=== PATIENT | male | born 2000 | race Hispanic/Latino ===

== ENCOUNTER 2021-12-14 09:54 | Emergency (ER) | payer OTHER, SELFPAY ==
[2021-12-14 10:53] VITALS: BP 128/84; PULSE 65; RESP 14; TEMP 36.9; O2SAT 100; BMI 25.8
--- NOTE | 2021-12-14 10:55 | DI.RAD.S_ITS ---
PROCEDURE: XR CHEST 1V INDICATIONS: chest pain TECHNIQUE: One view of the chest was acquired. COMPARISON: None. FINDINGS: Surgical changes and devices: None. Lungs and pleura: Lungs are clear. No pleural effusions or pneumothorax. Mediastinum: Mediastinal contours appear normal. Heart size is normal. Bones and chest wall: No suspicious bony lesions. Overlying soft tissues appear unremarkable. IMPRESSION: No acute cardiopulmonary pathology. Dictated by: Butch Darling M.D. on 12/14/2021 at 11:31 Approved by: Butch Darling M.D. on 12/14/2021 at 11:37
[2021-12-14 11:47] LABS: Add Manual Diff / Slide Review NO; Basophils Absolute Auto 0 /uL (0-100); Basophils Percent Auto 0.8 % (0-2); Eosinophils Absolute Auto 0 /uL (0-450); Eosinophils Percent Auto 0.9 % (2-4); Hematocrit 51.7 % (41-53); Hemoglobin 17.8 g/dL (13.5-17.5); Lymphocytes Absolute Auto 1600 /uL (1100-4500); Lymphocytes Percent Auto 28.9 % (25-40); Mean Corpuscular HGB Conc 34.4 % (30-36); Mean Corpuscular Hemoglobin 30.5 PG (26-34); Mean Corpuscular Volume 88.7 fL (80-100); Monocytes Absolute Auto 200 /uL (0-900); Monocytes Percent Auto 3.8 % (3-14); Neutrophils Absolute Auto 3700 /uL (1500-7000); Neutrophils Percent Auto 65.6 % (50-75); Platelet Count 298 X10^3/uL (150-400); Red Blood Cell Count 5.83 X10^6/uL (4.5-5.9); Red Cell Distribution Width 12.5 % (11.6-14.8); White Blood Cell Count 5.6 X10^3/uL (4.5-11.0)
[2021-12-14 11:58] LABS: Alanine Aminotransferase 23 IU/L (<50); Albumin 5.2 g/dL (3.5-5.0); Albumin Globulin Ratio 1.6 (1.0-2.8); Alkaline Phosphatase 66 U/L (38-126); Aspartate Aminotransferase 28 IU/L (17-59); BUN Creatinine Ratio 12.5 (6-22); Bilirubin Total 0.6 mg/dL (0.2-1.3); Blood Urea Nitrogen 14 mg/dL (9-20); Calcium 9.9 mg/dL (8.4-10.2); Carbon Dioxide 27 mmol/L (22-32); Chloride 102 mmol/L (98-107); Creatine Kinase 134 U/L (55-170); Estimated Glomerular Filt Rate > 60 mL/min (>60); Globulin 3.3 g/dL (1.7-4.1); Glucose 77 mg/dL (70-100); HEMOLYSIS 16 (0-50); Lipase 116 U/L (23-300); Magnesium 2.1 mg/dL (1.6-2.3); Potassium 4.1 mmol/L (3.4-5.1); Sodium 141 mmol/L (137-145); Total Protein 8.5 g/dL (6.3-8.2)
[2021-12-14 12:09] LABS: Troponin I < 0.012 ng/mL (0.01-0.034)
[2021-12-14 12:14] LABS: CKMB % Relative Index 0.9 % (1.5-5.0); Creatine Kinase MB 1.23 ng/mL (<2.37)
--- NOTE | 2021-12-14 12:45 | PC.NURSE ---
pt ambulatory to room 3A. YOLETTE Cristobal at bedside. Pt with IV and labs sent. EKG and CXR done in triage.
[2021-12-14 13:05] VITALS: BP 138/70; PULSE 70; O2SAT 97
--- NOTE | 2021-12-14 15:16 | ED_ITS ---
HPI - Chest Pain <HAYLIE Fields - Last Filed: 12/14/21 15:25> General Chief Complaint: Chest Pain Stated Complaint: Chest pains on Right side Time Seen by Provider: 12/14/21 12:41 Source: patient Mode of arrival: Ambulatory Limitations: no limitations History of Present Illness HPI narrative: This is a 21-year-old male presents to the emergency department from the [employer] complaining of right-sided chest pain, denies any tenderness to palpation but states that he has pain with deep inspiration. States that he works out frequently and might have a muscle strain. He denies any shortness of breath, fever, chills, sore throat, congestion, other symptoms. He denies any weakness, numbness or tingling, palpitations, or nausea or vomiting. Related Data Allergies Allergy/AdvReac Type Severity Reaction Status Date / Time No Known Drug Allergies Allergy Verified 12/14/21 10:53 Review of Systems <HAYLIE Fields - Last Filed: 12/14/21 15:25> Review of Systems Narrative: Review of systems is negative for acute abnormalities unless otherwise noted in HPI Patient History <HAYLIE Fields - Last Filed: 12/14/21 15:25> Social History Smoking Status: Unknown if ever smoked Smoking Status: Unknown if ever smoked alcohol intake frequency: 0-2 drinks per day Substance Use Type: does not use Exam <HAYLIE Fields - Last Filed: 12/14/21 15:25> Narrative Exam Narrative: Reviewed vitals signs and nursing notes. General: cooperative, comfortable, in no acute distress, well groomed HEENT: symmetrical facial expressions, moist mucous membranes Cardiovascular: regular rate and rhythm, no peripheral edema, warm extremities, S1-S2 without murmur, Respiratory: normal effort, able to speak in complete sentences, without wheezing, stridor, or abnormal breath sounds. No retractions or tachypnea. GI: abdomen soft, nontender to palpation, nondistended, without masses, rebound tenderness or exquisite tenderness with exam. MSK: moves all extremities, neurovascularly intact, no weakness, normal tone, no tenderness about patient of the right chest or intercostal rib space Skin: brisk capillary refill, without pallor or erythema Neuro: normal speech and cognition, A&O x3, ambulatory, clear speech Psych: mental status is grossly normal, congruent mood, normal affect, pleasant and cooperative Initial Vital Signs Initial Vital Signs: Vital Signs Temperature 98.4 F 12/14/21 10:53 Pulse Rate 65 12/14/21 10:53 Respiratory Rate 14 12/14/21 10:53 Blood Pressure 128/84 12/14/21 10:53 Pulse Oximetry 100 12/14/21 10:53 Oxygen Delivery Method 12/14/21 10:53 <Christian Razo DO - Last Filed: 12/15/21 07:14> Initial Vital Signs Initial Vital Signs: Vital Signs Temperature 98.4 F 12/14/21 10:53 Pulse Rate 65 12/14/21 10:53 Respiratory Rate 14 12/14/21 10:53 Blood Pressure 128/84 12/14/21 10:53 Pulse Oximetry 100 12/14/21 10:53 Oxygen Delivery Method 12/14/21 10:53 Course <GRACIE FieldsP - Last Filed: 12/14/21 15:25> Orders Ordered: ED Orders 12/14/21 10:55 XR chest 1V Stat 12/14/21 11:03 EKG-12 Lead Routine 12/14/21 11:22 Complete Blood Count AUTO DIFF Stat Comprehensive Metabolic Panel Stat Lipase Stat Magnesium Stat Troponin & CK Cardiac Panel Stat Vital Signs Vital signs: Vital Signs - 8 hr 12/14/21 10:53 12/14/21 13:05 Temperature 98.4 F Pulse Rate 65 70 Respiratory Rate 14 Blood Pressure 128/84 138/70 Pulse Oximetry 100 97 Oxygen Delivery Method Room Air Room Air <Christian Razo DO - Last Filed: 12/15/21 07:14> Orders Ordered: ED Orders 12/14/21 10:55 XR chest 1V Stat 12/14/21 11:03 EKG-12 Lead Routine 12/14/21 11:22 Complete Blood Count AUTO DIFF Stat Comprehensive Metabolic Panel Stat Lipase Stat Magnesium Stat Troponin & CK Cardiac Panel Stat Vital Signs Vital signs: Vital Signs - 8 hr 12/14/21 10:53 12/14/21 13:05 Temperature 98.4 F Pulse Rate 65 70 Respiratory Rate 14 Blood Pressure 128/84 138/70 Pulse Oximetry 100 97 Oxygen Delivery Method Room Air Room Air MDM - Chest Pain <Mistyjose Cardonabenjamin, [facility] - Last Filed: 12/14/21 15:25> Lab Data Result diagrams: 12/14/21 11:12/14/21 11:22 Labs: Lab Results 12/14/21 12/14/21 Range/Units 11: 11: WBC 5.6 (4.5-11.0) X10^3/uL RBC 5.83 (4.5-5.9) X10^6/uL Hgb 17.8 H (13.5-17.5) g/dL Hct 51.7 (41-53) % MCV 88.7 (80-100) fL MCH 30.5 (26-34) PG MCHC 34.4 (30-36) % RDW 12.5 (11.6-14.8) % Plt Count 298 (150-400) X10^3/uL Neut % (Auto) 65.6 (50-75) % Lymph % (Auto) 28.9 (25-40) % [place] % (Auto) 3.8 (3-14) % Eos % (Auto) 0.9 L (2-4) % Baso % (Auto) 0.8 (0-2) % Neut # (Auto) 3700 (1332-8512) /uL Lymph # (Auto) 1600 (3782-5069) /uL [place] # (Auto) 200 (0-900) /uL Eos # (Auto) 0 (0-450) /uL Baso # (Auto) 0 (0-100) /uL Sodium 141 (137-145) mmol/L Potassium 4.1 (3.4-5.1) mmol/L Chloride 102 (98-107) mmol/L Carbon Dioxide 27 (22-32) mmol/L BUN 14 (9-20) mg/dL Creatinine 1.12 (0.66-1.25) mg/dL Estimated GFR > 60 (>60) mL/min BUN/Creatinine Ratio 12.5 (6-22) Glucose 77 (70-100) mg/dL Calcium 9.9 (8.4-10.2) mg/dL Magnesium 2.1 (1.6-2.3) mg/dL Total Bilirubin 0.6 (0.2-1.3) mg/dL AST 28 (17-59) IU/L ALT 23 (<50) IU/L Alkaline Phosphatase 66 (38-126) U/L Total Creatine Kinase 134 (55-170) U/L CK-MB (CK-2) 1.23 (<2.37) ng/mL CK-MB (CK-2) Rel Index 0.9 L (1.5-5.0) % Troponin I < 0.012 (0.01-0.034) ng/mL Total Protein 8.5 H (6.3-8.2) g/dL Albumin 5.2 H (3.5-5.0) g/dL Globulin 3.3 (1.7-4.1) g/dL Albumin/Globulin Ratio 1.6 (1.0-2.8) Lipase 116 (23-300) U/L Imaging Data Chest x-ray: Radiologist's Impression: PROCEDURE:? XR CHEST 1V ? INDICATIONS:? chest pain ? TECHNIQUE:? One view of the chest was acquired.? ? COMPARISON:? None. ? FINDINGS:? ? Surgical changes and devices:? None.? ? Lungs and pleura:? Lungs are clear.? No pleural effusions or pneumothorax.? ? Mediastinum:? Mediastinal contours appear normal.? Heart size is normal.? ? Bones and chest wall:? No suspicious bony lesions.? Overlying soft tissues appear unremarkable.? ? IMPRESSION:? No acute cardiopulmonary pathology. ? ? Dictated by: Butch Darling M.D. on 12/14/2021 at 11:31 ? ? Approved by: Butch Darling M.D. on 12/14/2021 at 11:37 ? ECG Data Interpretation: EKG independently reviewed by myself at 1115 reveals normal sinus rhythm at 84 bpm with regular axis and intervals. No STEMI, ST segment changes, arrhythmia, or acute ischemic changes. MDM Narrative Medical decision making narrative: 21-year-old male with history of right-sided chest pain without upper respiratory infection with deep inspiration. States it has been there for 2 weeks, endorses frequent workouts certain movements stretching. This costochondritis, his chest x-ray and laboratory workup was unremarkable for abnormalities. Breath sounds are clear throughout, patient is without any si gnificant findings, EKG is normal sinus rhythm without any ST changes. Recommend hydration, his hemoglobin is mildly elevated at 17.8. Suspect dehydration versus polycythemia. Patient states he is not drank any water today. Recommend that he follow-up with [facility], if his symptoms are ongoi ng to have a physical therapy evaluation and or an orthopedic evaluation. Symptoms are provocable with movements, EKG without any ST changes or arrhythmia. Multiple causes of chest pain considered including OR, PE, pneumothorax, pneumonia, aortic dissection, and pleurisy. Patient reports no radiation, no diaphoresis, no provocation with exertion, and no vomiting Patient is appropriate and amenable to discharge home. Vital signs are stable on repeat examination is unremarkable. Patient has been informed of results. Patient has been given strict return to ER precautions for any new or worsening symptoms. Patient understands to follow up closely with outpatient providers as instructed. Patient understands plan and agrees to discharge home. All questions and concerns answered at this time. <Christian Razo DO - Last Filed: 12/15/21 07:14> Lab Data Labs: Lab Results 12/14/21 12/14/21 Range/Units : 11: WBC 5.6 (4.5-11.0) X10^3/uL RBC 5.83 (4.5-5.9) X10^6/uL Hgb 17.8 H (13.5-17.5) g/dL Hct 51.7 (41-53) % MCV 88.7 (80-100) fL MCH 30.5 (26-34) PG MCHC 34.4 (30-36) % RDW 12.5 (11.6-14.8) % Plt Count 298 (150-400) X10^3/uL Neut % (Auto) 65.6 (50-75) % Lymph % (Auto) 28.9 (25-40) % [place] % (Auto) 3.8 (3-14) % Eos % (Auto) 0.9 L (2-4) % Baso % (Auto) 0.8 (0-2) % Neut # (Auto) 3700 (7775-4144) /uL Lymph # (Auto) 1600 (1806-7695) /uL [place] # (Auto) 200 (0-900) /uL Eos # (Auto) 0 (0-450) /uL Baso # (Auto) 0 (0-100) /uL Sodium 141 (137-145) mmol/L Potassium 4.1 (3.4-5.1) mmol/L Chloride 102 (98-107) mmol/L Carbon Dioxide 27 (22-32) mmol/L BUN 14 (9-20) mg/dL Creatinine 1.12 (0.66-1.25) mg/dL Estimated GFR > 60 (>60) mL/min BUN/Creatinine Ratio 12.5 (6-22) Glucose 77 (70-100) mg/dL Calcium 9.9 (8.4-10.2) mg/dL Magnesium 2.1 (1.6-2.3) mg/dL Total Bilirubin 0.6 (0.2-1.3) mg/dL AST 28 (17-59) IU/L ALT 23 (<50) IU/L Alkaline Phosphatase 66 (38-126) U/L Total Creatine Kinase 134 (55-170) U/L CK-MB (CK-2) 1.23 (<2.37) ng/mL CK-MB (CK-2) Rel Index 0.9 L (1.5-5.0) % Troponin I < 0.012 (0.01-0.034) ng/mL Total Protein 8.5 H (6.3-8.2) g/dL Albumin 5.2 H (3.5-5.0) g/dL Globulin 3.3 (1.7-4.1) g/dL Albumin/Globulin Ratio 1.6 (1.0-2.8) Lipase 116 (23-300) U/L Discharge Plan Departure Patient Disposition: Home Clinical Impression: Costal chondritis Instructions: Costochondritis Activity Restrictions/Additional Instructions: *You have been diagnosed with costochondritis. Your lab work all looks great, as well as your chest x-ray, EKG and exam. I think you are mildly dehydrated, and this is most likely related to muscle use, could be rib and muscle pain related to hypertrophy of the muscles adjacent to the ribs. Please try to drink more water, this will help flush out lactic acid. Try to use ibuprofen every 8 hours with food and water, see if your symptoms improve with taking frequent deep breaths, stretching your muscles, and time. Follow-up with [facility] if you need a referral to orthopedics or physical therapy for another evaluation of your injury/symptoms. *What to do: *Please continue to take your regular medications as directed. [ ] New medication prescriptions sent to your pharmacy: [ ] [ ] New medication written as a paper prescription [x ] No new medications given *Please follow up with your primary care provider in 2-3 days, call for an appointment. Let them know you were seen in the Emergency Department and that we asked that you be seen for follow-up. We will electronically transmit a record of today's note if your PCP is in our system *If you do not have a primary care provider please contact [phone] to establish care with one of the [facility] primary care providers. *Return to Emergency Department if you should have any new, worsening, or concerning symptoms, such as [fever greater than 101F, chills, worsening pain, persistent vomiting or other bothersome symptoms]. Referrals: [facility] [Outside] Visit Report Forms: Patient Portal/API <Christian Razo DO - Last Filed: 12/15/21 07:14> [facility] Cristalature Attestation: I was immediately available in the department for consultation. This documentation has been reviewed and I agree with assessment and plan. Supervised by Christian Razo DO
== END 2021-12-14 13:06 | disposition home or self-care (01) ==
PROVIDERS: Emergency Medicine; Emergency Provider Nurse Practitioner Critical Care Medicine
DX: M94.0 Chondrocostal junction syndrome [Tietze] (principal)
CPT/HCPCS: 36415; 71045; 80053; 82550; 82553; 83690; 83735; 84484; 85025; 93005; 99283; 99284